=== PATIENT | female | born 1990 | race Caucasian/White ===

== ENCOUNTER → 2020-10-09 | Outpatient (CLI) | payer MEDICAID, SELFPAY ==
[2015-01-23 15:42] VITALS: BMI 17.7
--- NOTE | 2020-10-09 | ECC_PTH ---
PATIENT: MACY MCKINNON LOC: [facility] U#:[id number] AGE/SX: 30/F ROOM: RE10/09/[address]: Dr. Tristen Andino MD : 1990 BED: DIS: 10/09/2020 SPEC #: [id number] RECD: 10/09/20 16:33 STATUS: SONIA RESachi #: [id number] RAMANDEEP: 10/09/20 00:[address]: Tristen Andino DEPT: SURGICAL PATHOLOGY RECD BY: Uri Hatch ENTERED: 10/10/20 07:56 SP TYPE: ECC JENNI DR: Dr. Mia Guerrero MD Tissues: A - Endocervical B - Endocervical Procedures: Surgery Specimen Level IV HEADER OPERATION: Colposcopy with biopsies PRE-OP DIAGNOSIS: LGSIL TISSUE SUBMITTED: A - ECC, B - EC biopsy, 1, 5, 7 and 11 o'clock MICROSCOPIC DIAGNOSIS A. Endocervix, curetting: Strips of benign superficial endocervix. No evidence of dysplasia. See comment. B. 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 See comment. AM:john 10/11/2020 COMMENT A & B. Results from immunohistochemistry ([id number]) for surrogate HPV marker (p16) will be reported separately. Case has been reviewed in consultation with Dr. Houston who concurs with the above diagnosis. IDC:SJ MICROSCOPIC DESCRIPTION Slides are reviewed. GROSS DESCRIPTION A - Received in fixative is one container labeled with the patient's name and designated ECC. The specimen consists of multiple irregular fragments of [place] mucoid tissue that in aggregate measure 0.5 x 0.5 x 0.1 cm. The specimen is totally submitted in one cassette. B - Received in fixative is one container labeled with the patient's name and designated EC biopsy 1, 5, 7 and 11. The specimen consists of multiple irregular fragments of light [place] soft tissue that in aggregate measure 1.5 x 0.5 x 0.1 cm. The specimen is totally submitted in one cassette. / YUNIOR:john 10/10/20 TC:3 CPT: 86398 x2
--- NOTE | 2020-10-09 | IMM_PTH ---
PATIENT: MACY MCKINNON LOC: [facility] U#:[id number] AGE/SX: 30/F ROOM: RE10/09/[address]: Dr. Tristen Andino MD : 1990 BED: DIS: 10/09/2020 SPEC #: [id number] RECD: 10/11/20 12:27 STATUS: SONIA REQ #: [id number] RAMANDEEP: 10/09/20 00:[address]: Tristen Andino DEPT: IMMUNOHISTOCHEMISTRY RECD BY: Thalia Leiva ENTERED: 10/11/20 12:28 SP TYPE: IMMUNO OTHR DR: Dr. Mia Guerrero MD Tissues: A - Endocervical B - Uterine cervix, NOS Procedures: p16 (initial) KI-67 (add) PHYSICIAN & INSTITUTION [place] [id number] SPECIMEN INFORMATION: Tissue Source: A - ECC, B - EC biopsy Clinical Info: MONICA Specimen Number: [id number] A & B CPT code: 50057 x2, 96026 x2 METHODOLOGY: Deparaffinized sections of prefer/formalin-fixed tissue or PAP/DQ stained slides are incubated with monoclonal/polyclonal antibodies/oligonucleotide probes. Localization is made via biotin free immunoperoxidase method. Appropriate controls are performed and reacted as expected. Results on target cell population are indicated in the following table: RESULTS: ANTIBODY / CLONE RESULT Block A P16 (E6H4) negative Ki-67 (30-9) negative Block B P16 (E6H4) positive, focal, patchy Ki-67 (30-9) positive, low These tests were developed and their performance characteristics determined by [facility]. They may not have been cleared or approved by the U.S. Food and Drug Administration. The FDA has determined that such clearance or approval is not necessary. The above immunohistochemical/dualISH markers are ordered and reviewed by the Pathologist. INTERPRETATION: A. Endocervix, curettings: No evidence of dysplasia. B. Cervix, biopsy: Focal HPV change. AM:john 10/12/2020
== END | disposition home or self-care (01) ==
LOC: LABSPEC 13:45
PROVIDERS: PCP Family Medicine; Visit Provider Obstetrics & Gynecology
DX: N87.9 Dysplasia of cervix uteri, unspecified (principal)
CPT/HCPCS: 88305; 88341; 88342

== ENCOUNTER 2022-04-02 09:15 | Emergency (ER) | payer MEDICAID, SELFPAY ==
[2022-04-02 09:16] VITALS: BP 124/79; PULSE 83; RESP 14; TEMP 36.7; O2SAT 100; BMI 16.6
--- NOTE | 2022-04-02 09:32 | EX.ED.DYSGE1 ---
HPI History of Present Illness Chief Complaint: Allergic Reaction Narrative Narrative: Patient presents with left tooth ache and some nausea, she thinks it may be secondary to Flagyl. She was placed on clindamycin for dental infection and she just finished it however she saw dentistry and was placed on Flagyl and started having some nausea. She has no rash, she does not feel her throat closing she has no vomiting or any other systemic symptoms. Nausea is her only concern as well as the dental pain. PFSH PFSH Home Medications clindamycin HCl 150 mg capsule 450 mg PO TID 04/02/22 [History Last Taken Unknown] metronidazole 500 mg tablet 500 mg PO BID 04/02/22 [History Last Taken Unknown] naproxen 500 mg tablet (Naprosyn) 500 mg PO BID #20 tabs 04/02/22 [Rx Last Taken Unknown] ondansetron 4 mg disintegrating tablet 4 mg PO Q8H #14 tabs 04/02/22 [Rx Last Taken Unknown] Allergy/AdvReac Type Severity Reaction Status Date / Time morphine Allergy Itching Verified 04/02/22 09:16 sulfamethoxazole Allergy Vomiting Verified 04/02/22 09:16 [From Bactrim] trimethoprim [From Bactrim] Allergy Vomiting Verified 04/02/22 09:16 Social History Smoking Status: Former smoker ROS ROS ED ROS Narrative Past medical history: Reviewed Medications: Reviewed Social history: Noncontributory Review of systems: All systems negative except as indicated General: No fever Eyes: No visual changes ENT: Left-sided dental pain as in HPI Neck: No neck pain Cardiovascular: No chest pain Respiratory: No shortness of breath or cough Gastrointestinal: Nausea as in HPI Genitourinary: No dysuria Musculoskeletal: Denies myalgias no difficulty with ambulation Skin: No rash Neurological: No memory loss, confusion or any focal weakness Psych: No recent behavioral changes Hematologic: No easy bleeding or easy bruising EXAM Physical Exam Narrative Exam Narrative: Physical exam General: Well nourished, Well developed, No Acute Distress Head: Normocephalic, Atraumatic Eyes: Conjunctiva not pale ENT: Moist mucous membranes. Left upper and lower molars to show some decay. There is dental tenderness over the left lower last molar but no periapical abscess. Neck: Supple, Nontender, No lymphadenopathy Cardiovascular: Regular rate, Regular rhythm Respiratory: No distress, CTA bilaterally Abdomen: Soft, Nontender, Nondistended Back: Nontender, Normal Inspection. Negative for: CVA tenderness Extremities: Nontender, No edema Skin: Normal color, No rash Neurological: Alert, Normal Strength, Normal Sensation Psychological: Normal affect Const Vital Signs: 04/02/22 09:16 Temperature 98.1 F Temperature Source Temporal Pulse Rate 83 Respiratory Rate 14 Blood Pressure 124/79 H Blood Pressure Mean 94 Pulse Ox 100 Oxygen Delivery Method Room Air MDM MDM MDM Narrative Medical decision making narrative: I am unsure that this is an allergic reaction, she likely should finish the Flagyl she is denying alcohol with this. I will give analgesia and antiemetics if anything changes she is to stop the Flagyl otherwise she is to continue it and follow-up with dentistry apparently she is scheduled to have her wisdom teeth removed in 2 weeks. Discharge Plan Triage Chief Complaint: Allergic Reaction ED Provider: Gallito Downey Dx/Rx/DC Orders Clinical Impression: Odontalgia, Nausea Instructions: ED Dental Pain Prescriptions: New naproxen [Naprosyn] 500 mg tablet 500 mg PO BID Qty: 20 0RF ondansetron 4 mg tablet,disintegrating 4 mg PO Q8H Qty: 14 0RF No Action clindamycin HCl 150 mg capsule 450 mg PO TID Label Comments: TAKE 3 CAPSULES BY MOUTH THREE TIMES DAILY FOR 5 DAYS. metronidazole 500 mg tablet 500 mg PO BID Label Comments: TAKE 1 TABLET BY MOUTH TWICE A DAY FOR 5 DAYS Primary Care Provider: Mia Guerrero Referrals: Mia Guerrero MD [Primary Care Provider] - 3-5 Days Disposition Disposition: Home, Self Care
[2022-04-02] MEDS: Ondansetron ODT 4 MG Tablet PO (09:35)
== END 2022-04-02 09:50 | disposition home or self-care (01) ==
PROVIDERS: Emergency Provider Emergency Medicine; PCP Physician Assistant; Visit Provider Emergency Medicine
DX: K02.9 Dental caries, unspecified (principal)
CPT/HCPCS: 99283